=== PATIENT | female | born 1960 | race Caucasian/White ===

== ENCOUNTER 2016-07-01 23:03 | Emergency (ER) | payer OTHER ==
[~2016-07-01] VITALS: Ht 154.9 cm; Wt 105.2 kg
[~2016-07-01 23:03] MED LIST: APAP325 MG PO; BACLOFEN10 M1 PO; CALCIUM 600 +1 EAC1 PO; CALCIUM 600600 M1 PO; CALTRATE 600600 MG PO; CLINDAMYCIN HC300 M1 PO; CLINDAMYCIN HY300 MG PO; CYMBALTA60 M1 PO; DILAUDID2 M1 PO; DILAUDID2 MG PO; DULCOLAX5 MG PO; DULCOLAX5 MG PR; DURAGESIC1 EAC1 TOP; DURAGESIC50 MCG TOP; ECOTRIN81 M1 PO; FERROUS SULFAT325 M3 PO; FISH OIL1000 MG PO; FLEET ENEMA 131 UNIT PR; FLOVENT HF0.22 MG/Ac INH; FOLIC ACID 1 MG PO; FOLIC ACID0.4 M1 PO; FUROSEMIDE80 M1 PO; GARLIC OIL NA1000 MG PO; GLUCOSAMINE & C1 CAP PO; GLUCOSAMINE/CHO1 TAB PO; GLUCOSAMINE1000 MG PO; K-DUR20 MEQ PO; KEFLEX250 M1 PO; KEFLEX500 M1 PO; KEFLEX500 MG PO; LASIX20 MG PO; LASIX40 MG PO; LIDODERM 5% PAT1 PAT TOP; LYRICA100 MG PO; METOLAZONE5 M1 PO; METROGEL TOP; MILK OF MAGNESI30 ML PO; MILK THISTLE500 MG PO; MIRALAX17 GM PO; MOTRIN 400MG (400 MG PO; MULTIVITAMINS1 EAC1 PO; MYRBETRIQ50 M1 PO; NAPROSYN375 MG PO; NATURAL E400 IU PO; NEURONTIN300 MG PO; NEURONTIN800 M2 PO; NIACIN500 M3 PO; OMEPRAZOLE D/R20 MG PO; PEDI-DRI 20Z60 GM TP; PROAIR HFA0.09 MG/Ac INH; QNASL80 MCG/Act INH; QVAR0.04 MG/Ac INH; SENNA CON/DOCUS1 TAB PO; SENNA DOCUSATE1 TAB PO; TIZANIDINE HCL4 M1 PO; TUMS500 MG PO; VITAMIN B-12100 MCG PO; VITAMIN B-121000 MC3 PO; VITAMIN C500 M6 PO; VITAMIN D32000 UNI1 PO; VITAMIN E PO
[2016-07-01 23:09] VITALS: BP 164/99
--- NOTE | 2016-07-01 23:46 | ED UPPER/LOWER EXTREMITY COMPL ---
History of Present Illness General Chief Complaint: Upper Extremity Injury Stated Complaint: FALL, RIGHT ARM PAIN PER PT Source: patient, friend Exam Limitations: no limitations Vital Signs & Intake/Output Vital Signs & Intake/Output Vital Signs Date Time Temp Pulse Resp B/P Pulse O2 O2 Flow FiO2 Ox Delivery Rate 07/01 2309 97.0 90 20 164/99 95 Room Air ED Intake and Output 07/02 0000 07/01 1200 Intake Total Output Total Balance Patient 232 lb Weight Allergies Coded Allergies: vancomycin (Severe, GI DISTRESS 07/19/15) cephalexin (Intermediate, GI UPSET 07/19/15) cefuroxime (VOMITING 07/19/15) codeine (VOMITING 07/19/15) levofloxacin (NAUSEA 07/19/15) rofecoxib (UPSET STOMACH 07/19/15) Reconcile Medications Albuterol Sulfate (Proair Hfa) 0.09 MG/Actuation RAIN 2 PUFF INH Q4H PRN ASTHMA (Reported) Ascorbate Calcium (Vitamin C) 500 MG TABLET 1 TAB PO DAILY SUPPELMENT ( Reported) Aspirin (Ecotrin) 81 MG TABLET.DR 2 TAB PO DAILY HEART HEALTH (Reported) Baclofen 10 MG TABLET 1 TAB PO TID PRN UNKNOWN (Reported) Calcium Carbonate/Vitamin D3 (Calcium 600 + Vit D Tablet) 1 EACH TABLET 1 TAB PO DAILY SUPPLEMENT (Reported) Cephalexin (Keflex) 500 MG CAPSULE 1 CAP PO Q6 cellulitis Cholecalciferol (Vitamin D3) (Vitamin D3) 2,000 UNIT TABLET 1 TAB PO DAILY SUPPLEMENT (Reported) Cyanocobalamin (Vitamin B-12) 1,000 MCG TABLET 2 TAB PO DAILY SUPPLEMENT ( Reported) Duloxetine HCl (Cymbalta) 60 MG CAPSULE.DR 1 CAP PO DAILY DEPRESSION ( Reported) Ferrous Sulfate 325 MG (65 MG IRON) TABLET 1 TAB PO DAILY SUPPLEMENT ( Reported) Fluticasone Propionate (Flovent Hfa) 0.22 MG/Actuation RAIN 2 PUFF INH BID ASTHMA (Reported) 220 MCG PER PUFF Folic Acid 0.4 MG TABLET 1 TAB PO DAILY SUPPLEMENT (Reported) Furosemide 80 MG TABLET 1 TAB PO DAILY PRN diuretic (Reported) Gabapentin (Neurontin) 800 MG TABLET 1 TAB PO DAILY NEUROPATHY (Reported) Garlic (Garlic Oil Natural) 1,000 MG SGL 1 TAB PO DAILY SUPPLEMENT (Reported) Glucosamine Sulfate 2KCL (Glucosamine) 1,000 MG TABLET 0.5 TAB PO DAILY SUPPLEMENT (Reported) Hydromorphone HCl (Dilaudid) 2 MG TABLET 1 TAB PO Q6H PRN pain Ibuprofen 600 MG TABLET 1 TAB PO Q6 PRN PAIN with food Lidocaine HCl (Lidoderm Patch) 5 % PAT 2 PAT TOP DAILY BILATERAL LEGS/FEET ( Reported) may wear up to 12 hours Mirabegron (Myrbetriq) 50 MG TAB.ER.24H 1 TAB PO DAILY BLADDER (Reported) Multivitamin (Multivitamins) 1 EACH TAB.CHEW 1 TAB PO DAILY SUPPLEMENT ( Reported) OMEGA-3/DHA/EPA/FISH OIL ([place]-3 Fish Oil 1,000 MG Sftg) 300 MG-1,000 MG CAPSULE 1 CAP PO DAILY SUPPLEMENT (Reported) Omeprazole 20 MG CAPSULE.DR 20 MG PO DAILY GERD (Reported) Ondansetron (Zofran Odt) 4 MG TAB.RAPDIS 1 TAB PO Q6 PRN NAUSEA Oxycodone HCl/Acetaminophen (Percocet 5-325 MG Tablet) 5 MG-325 MG TABLET 1 TAB PO Q4-6 PRN BREAKTHROUGH PAIN Oxycodone HCl/Acetaminophen (Percocet 5-325 MG Tablet) 5 MG-325 MG TABLET 1 TAB PO 4XDP PRN PAIN TEN...[id number] Oxycodone HCl/Acetaminophen (Percocet 5-325 MG Tablet) 5 MG-325 MG TABLET 1 TAB PO Q6H PRN PAIN Polyethylene Glycol 3350 (Miralax) 17 GM PWD 17 GM PO DAILY STOOL SOFTENER ( Reported) mix with water, juice, soda, coffee or tea Potassium Chloride (K-Dur) [address] 1 TAB PO DAILY POTASSIUM SUPPLEMENT ( Reported) Vitamin E 400 IU SGL 1 TAB PO DAILY SUPPLEMENT (Reported) Triage Note: FELL 3-4 HRS AGO NO LOC FACIAL PAIN AND RIGHT SHOULDER AND UPPER ARM PAIN CMS INTACT Triage Nurses Notes Reviewed? yes Onset: Afternoon Duration: hour(s): (SEVERAL) Severity: moderate, severe Pain/Injury Location: Right: Shoulder. Method of Injury: fall Modifying Factors: Worsens With: movement. Associated Symptoms: stiffness HPI: 55 year old female s/p mechanical trip and fall at 5:30 pm on a scatter rug. Hit right side of face and right shoulder. No LOC. Progressive worsening shoulder pain in the last few hours. No relief with motrin at home. No chest pain, shortness of breath or neck pain. Past History Travel History Traveled to [place] past 21 day No Medical History Any Pertinent Medical History? 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 No Review of Systems Review of Systems Constitutional: Denies: chills, fever. EENTM: Reports: no symptoms. Respiratory: Denies: cough. Cardiovascular: Denies: chest pain. Gastrointestinal/Abdominal: Reports: no symptoms. Genitourinary: Reports: no symptoms. Musculoskeletal: Reports: joint pain, joint swelling, muscle pain, muscle stiffness. Skin: Reports: no symptoms. Neurological/Psychological: Denies: headache. Hematologic/Endocrine: Denies: bruising, bleeding. Immunological: Reports: no symptoms. All Other Systems: Reviewed and Negative Physical Exam Physical Exam General Appearance: well developed/nourished, alert, awake, mild distress, obese Head: atraumatic Eyes: Bilateral: PERRL, EOMI. Ears, Nose, Throat: normal pharynx, normal ENT inspection, hearing grossly normal Neck: normal inspection, supple Cardiovascular/Respiratory: regular rate/rhythm Peripheral Pulses: 2+ radial (R), 2+ radial (L) Gastrointestinal: soft, nontender, obese Back: normal inspection Shoulder Left: normal range of motion, normal inspection Shoulder Right: normal range of motion, normal inspection, pain (with range of motion) Elbow Left: normal range of motion, normal inspection Elbow Right: normal range of motion, normal inspection Hand Left: normal inspection, normal range of motion Hand Right: normal inspection, normal range of motion Neurologic/Tendon: normal sensation, normal motor functions Skin: intact, normal color, warm/dry Lymphatic: no anterior cervical adalid Progress Differential Diagnosis: contusion, dislocation, fracture, sprain Plan of Care: Orders Procedure Date/time Status Durable Medical Equipment 07/01 2342 Active Diagnostic Imaging: Viewed by Me: Radiology Read. Discussed w/RAD: Radiology Read. Radiology Impression: PATIENT: CAMRYN SOSA PRESENT AGE: 55 PATIENT ACCOUNT NO: [id number] : 61 LOCATION: [facility] [place] ORDERING PHYSICIAN: KYRA TREADWELL MD SERVICE DATE: 07/01/16 EXAM TYPE: RAD - XRY-SHOULDER COMPLETE-RIGHT EXAMINATION: XR SHOULDER, RIGHT CLINICAL INFORMATION: Fall onto shoulder with worsening pain. COMPARISON: None TECHNIQUE: 3 views of the right shoulder. of the right shoulder. FINDINGS: There is a comminuted fracture of the right humeral greater tuberosity. There is minimal lateral and inferior displacement of the distal fragment, by approximately 0.3 cm. The right humeral head continues to articulate with the glenoid. Mild hypertrophic degenerative changes of the acromioclavicular joint. The visualized lung is clear. IMPRESSION: Right humeral greater tuberosity fracture with minimal displacement. DICTATED BY: REINA AGUIRRE MD DATE/TIME DICTATED:19 UTILIZATION MANAGEMENT MANAGER:EDWARD DATE/TIME TRANSCRIBED:07/02/1619 CONFIDENTIAL, DO NOT COPY WITHOUT APPROPRIATE AUTHORIZATION. <Electronically signed in Other Vendor System> SIGNED BY: REINA AGUIRRE MD 07/02/1623 Departure Departure Time of Disposition: 32 Disposition: HOME OR SELF CARE Condition: Stable Clinical Impression Primary Impression: Fracture, humerus, great tuberosity Referrals: SARITA DAVIDSON,TATE BACH MD,LAMONTE Huang (PCP/Family) Additional Instructions: Take the medications as directed and use the sling as directed. Follow up with the senior publications specialist listed. Return as needed. Departure Forms: Customer Survey General Discharge Information Prescriptions: Current Visit Scripts Ibuprofen 1 TAB PO Q6 PRN PAIN #30 TAB with food Oxycodone HCl/Acetaminophen (Percocet 5-325 MG Tablet) 1 TAB PO Q4-6 PRN BREAKTHROUGH PAIN #12 TAB Ondansetron (Zofran Odt) 1 TAB PO Q6 PRN NAUSEA #10 TAB Procedures Splinting Location: right shoulder immobilizer
--- NOTE | 2016-07-02 00:24 | RADIOLOGY REPORT ---
EXAMINATION: XR SHOULDER, RIGHT CLINICAL INFORMATION: Fall onto shoulder with worsening pain. COMPARISON: None TECHNIQUE: 3 views of the right shoulder. of the right shoulder. FINDINGS: There is a comminuted fracture of the right humeral greater tuberosity. There is minimal lateral and inferior displacement of the distal fragment, by approximately 0.3 cm. The right humeral head continues to articulate with the glenoid. Mild hypertrophic degenerative changes of the acromioclavicular joint. The visualized lung is clear. IMPRESSION: Right humeral greater tuberosity fracture with minimal displacement.
[2016-07-02] MEDS ORDERED: IBUPROFEN600 M1 PO (00:36)
[2016-07-02] MEDS ORDERED: PERCOCET 5-3251 EACH PO (00:36)
[2016-07-02] MEDS ORDERED: ZOFRAN ODT4 M1 PO (00:36)
== END 2016-07-02 00:55 ==
LOC: ERH 23:03
DX: S42.251A Displaced fracture of greater tuberosity of right humerus, initial encounter for closed fracture (principal); W18.09XA Striking against other object with subsequent fall, initial encounter; Y92.9 Unspecified place or not applicable; Y93.9 Activity, unspecified
CPT/HCPCS: 73030-RT; 96372

== ENCOUNTER 2016-07-08 23:35 | Emergency (ER) | payer OTHER ==
[~2016-07-08] VITALS: Ht 154.9 cm; Wt 98.4 kg
[~2016-07-08 23:35] MED LIST changes: +IBUPROFEN600 M1 PO; +PERCOCET 5-3251 EACH PO; +ZOFRAN ODT4 M1 PO
--- NOTE | 2016-07-08 23:54 | ED UPPER/LOWER EXTREMITY COMPL ---
History of Present Illness General Chief Complaint: Upper Extremity Injury Stated Complaint: WHOLE RIGHT ARM PAIN/FALL Source: patient, family (sister), old records Exam Limitations: no limitations Vital Signs & Intake/Output Vital Signs & Intake/Output Vital Signs Date Time Temp Pulse Resp B/P Pulse O2 O2 Flow FiO2 Ox Delivery Rate 07/08 2356 97.0 83 20 152/69 96 ED Intake and Output 07/09 0000 07/08 1200 Intake Total Output Total Balance Patient 217 lb Weight Allergies Coded Allergies: vancomycin (Severe, GI DISTRESS 07/19/15) cephalexin (Intermediate, GI UPSET 07/19/15) cefuroxime (VOMITING 07/19/15) codeine (VOMITING 07/19/15) levofloxacin (NAUSEA 07/19/15) rofecoxib (UPSET STOMACH 07/19/15) Triage Nurses Notes Reviewed? yes HPI: Patient is a 55-year-old female presents complaining of right shoulder pain. Patient fell approximately one week ago when she tripped over a rug. Patient was seen in the emergency department and diagnosed with a right proximal humerus fracture. Patient been taking ibuprofen and Percocet with moderate improvement, patient ran out of her Percocet. Patient called Dr. Chery's office today but did not hear back from them. Patient also reporting bruising to the left side of her face. Pain is mild. Denies numbness. (ARNALOD LOU) Reconcile Medications Albuterol Sulfate (Proair Hfa) 0.09 MG/Actuation RAIN 2 PUFF INH Q4H PRN ASTHMA (Reported) Ascorbate Calcium (Vitamin C) 500 MG TABLET 1 TAB PO DAILY SUPPELMENT ( Reported) Aspirin (Ecotrin) 81 MG TABLET.DR 2 TAB PO DAILY HEART HEALTH (Reported) Baclofen 10 MG TABLET 1 TAB PO TID PRN UNKNOWN (Reported) Calcium Carbonate/Vitamin D3 (Calcium 600 + Vit D Tablet) 1 EACH TABLET 1 TAB PO DAILY SUPPLEMENT (Reported) Cephalexin (Keflex) 500 MG CAPSULE 1 CAP PO Q6 cellulitis Cholecalciferol (Vitamin D3) (Vitamin D3) 2,000 UNIT TABLET 1 TAB PO DAILY SUPPLEMENT (Reported) Cyanocobalamin (Vitamin B-12) 1,000 MCG TABLET 2 TAB PO DAILY SUPPLEMENT ( Reported) Duloxetine HCl (Cymbalta) 60 MG CAPSULE.DR 1 CAP PO DAILY DEPRESSION ( Reported) Ferrous Sulfate 325 MG (65 MG IRON) TABLET 1 TAB PO DAILY SUPPLEMENT ( Reported) Fluticasone Propionate (Flovent Hfa) 0.22 MG/Actuation RAIN 2 PUFF INH BID ASTHMA (Reported) 220 MCG PER PUFF Folic Acid 0.4 MG TABLET 1 TAB PO DAILY SUPPLEMENT (Reported) Furosemide 80 MG TABLET 1 TAB PO DAILY PRN diuretic (Reported) Gabapentin (Neurontin) 800 MG TABLET 1 TAB PO DAILY NEUROPATHY (Reported) Garlic (Garlic Oil Natural) 1,000 MG SGL 1 TAB PO DAILY SUPPLEMENT (Reported) Glucosamine Sulfate 2KCL (Glucosamine) 1,000 MG TABLET 0.5 TAB PO DAILY SUPPLEMENT (Reported) Hydromorphone HCl (Dilaudid) 2 MG TABLET 1 TAB PO Q6H PRN pain Ibuprofen 600 MG TABLET 1 TAB PO Q6 PRN PAIN with food Lidocaine HCl (Lidoderm Patch) 5 % PAT 2 PAT TOP DAILY BILATERAL LEGS/FEET ( Reported) may wear up to 12 hours Mirabegron (Myrbetriq) 50 MG TAB.ER.24H 1 TAB PO DAILY BLADDER (Reported) Multivitamin (Multivitamins) 1 EACH TAB.CHEW 1 TAB PO DAILY SUPPLEMENT ( Reported) OMEGA-3/DHA/EPA/FISH OIL ([place]-3 Fish Oil 1,000 MG Sftg) 300 MG-1,000 MG CAPSULE 1 CAP PO DAILY SUPPLEMENT (Reported) Omeprazole 20 MG CAPSULE.DR 20 MG PO DAILY GERD (Reported) Ondansetron (Zofran Odt) 4 MG TAB.RAPDIS 1 TAB PO Q6 PRN NAUSEA Oxycodone HCl/Acetaminophen (Percocet 5-325 MG Tablet) 5 MG-325 MG TABLET 1 TAB PO Q4-6 PRN BREAKTHROUGH PAIN Oxycodone HCl/Acetaminophen (Percocet 5-325 MG Tablet) 5 MG-325 MG TABLET 1 TAB PO 4XDP PRN PAIN TEN...[id number] Oxycodone HCl/Acetaminophen (Percocet 5-325 MG Tablet) 5 MG-325 MG TABLET 1 TAB PO Q6H PRN PAIN Polyethylene Glycol 3350 (Miralax) 17 GM PWD 17 GM PO DAILY STOOL SOFTENER ( Reported) mix with water, juice, soda, coffee or tea Potassium Chloride (K-Dur) [address] TAB PO DAILY POTASSIUM SUPPLEMENT ( Reported) Vitamin E 400 IU SGL 1 TAB PO DAILY SUPPLEMENT (Reported) (TESS DAVIDSON,PRUDENCIO Cartwright) Past History Travel History Traveled to [place] past 21 day No Medical History Any Pertinent Medical History? 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 No (ARNALDO LOU) Review of Systems Review of Systems Constitutional: Reports: no symptoms. EENTM: Reports: no symptoms. Cardiovascular: Denies: chest pain. Gastrointestinal/Abdominal: Denies: abdominal pain. Musculoskeletal: Reports: see HPI. Neurological/Psychological: Reports: no symptoms. Hematologic/Endocrine: Reports: bruising. Immunological: Reports: no symptoms. (ARNALDO LOU) Physical Exam Physical Exam General Appearance: well developed/nourished, alert, awake Head: ecchymosis left cheek. Minimal facial bone tenderness. Eyes: Bilateral: normal appearance, PERRL, EOMI. Ears, Nose, Throat: hearing grossly normal Neck: normal inspection, supple, full range of motion, no midline tenderness Cardiovascular/Respiratory: no respiratory distress Peripheral Pulses: 2+ radial (R) Back: normal inspection, normal range of motion, no vertebral tenderness Shoulder Right: tenderness and ecchymosis Elbow Right: normal range of motion, normal inspection, nontender Neurologic/Tendon: normal sensation Skin: warm/dry (ARNALDO LOU) Progress Differential Diagnosis: fracture, sprain, tendon injury, compartment syndrome, intracranial bleed, facial bone fracture Plan of Care: Current Medications Sig/Maria C Start time Last Medication Dose Stop Time Status Admin Oxycodone/ 1 TAB ONCE ONE 07/085 UNVr Acetaminophen 07/08 2346 (Percocet) No acute neurologic abnormalities. Patient does not appear to require further imaging. (ARNALDO LOU) Departure Departure Time of Disposition: 0000 Disposition: HOME OR SELF CARE Condition: Stable Clinical Impression Primary Impression: Proximal humerus fracture Qualifiers: Encounter type: subsequent encounter Fracture type: closed Fracture morphology: unspecified fracture morphology Laterality: right Referrals: AURORA DAVIDSON,LEA CHERY MD,TAI BACH MD,LAMONTE Huang (PCP/Family) Additional Instructions: Wear sling for support. Follow-up with one of the orthopedic doctors listed in your discharge paperwork this week for further evaluation. Call in the morning for appointment. Return to the emergency department if worsening of symptoms. Departure Forms: Customer Survey General Discharge Information (ARNALDO LOU) Departure Prescriptions: Current Visit Scripts Oxycodone HCl/Acetaminophen (Percocet 5-325 MG Tablet) 1 TAB PO 4XDP PRN PAIN #10 TAB TEN...[id number] Oxycodone HCl/Acetaminophen (Percocet 5-325 MG Tablet) 1 TAB PO Q6H PRN PAIN #10 TAB PA/FARM REPORTER Co-Sign Statement Statement: ED Attending supervision documentation- [] I saw and evaluated the patient. I have also reviewed all the pertinent lab results and diagnostic results. I agree with the findings and the plan of care as documented in the PA's/FARM REPORTER's documentation. [x] I have reviewed the ED Record and agree with the PA's/FARM REPORTER's documentation. [] Additions or exceptions (if any) to the PAs/FARM REPORTER's note and plan are summarized below: [] (TESS DAVIDSON,PRUDENCIO Cartwright)
[2016-07-08 23:56] VITALS: BP 152/69
[2016-07-09] MEDS ORDERED: PERCOCET 5-3251 EACH PO ×2 (00:02→00:25)
== END 2016-07-09 00:45 ==
LOC: ERH 23:35
DX: S42.201A Unspecified fracture of upper end of right humerus, initial encounter for closed fracture (principal); W18.09XA Striking against other object with subsequent fall, initial encounter; Y92.9 Unspecified place or not applicable; Y93.9 Activity, unspecified